=== PATIENT | female | born 1955 | race African-American/Black ===

== ENCOUNTER → 2017-11-23 | Outpatient (CLI) | payer OTHER ==
[~2017-11-23] MED LIST: GADOBUTROL 10 MMOL/10 ML VIAL IV ONE; SODIUM CHLORIDE 0.9% 100 ML 100 ML ONE
[2017-11-23 08:20] LABS: BLOOD UREA NITROGEN 17 mg/dL (7-26); BUN/CREATININE RATIO 22 (6-25); CREATININE, SERUM 0.78 mg/dL (0.57-1.11); EST GLOMERULAR FILTRATION RATE > 60 ML/MIN (60-)
--- NOTE | 2017-11-23 10:58 | Diagnostic Imaging Report ---
History: Carotid stenosis. Increased blood pressure Comparison studies: None Technique: 3-D dynamic postcontrast Contrast: 10 cc ofMagnevist. Findings: Percentage of stenosis will be based on the NASCET criteria. Aortic arch: No flow abnormalities. Common carotid arteries: No flow abnormalities. Right carotid bulb: Less than 20% stenosis. Left carotid bulb: No stenosis. Internal carotid arteries: No flow abnormalities. Vertebral arteries: Antegrade flow. Right dominant. No flow abnormalities of the right vertebral artery. More than 70% stenosis at the left vertebral artery takeoff. 30-40% stenosis at the mid intracranial left vertebral artery with irregular flow (V4 segment), most likely related to atherosclerotic changes. Focal mucosal thickening at the right maxillary sinus IMPRESSION: High-grade stenosis of the left vertebral artery takeoff. Moderate stenosis of the left vertebral artery intracranial segment. No hemodynamically significant stenosis of the remaining neck arteries. Signed by: DR Vickey Arnold M.D. on 11/23/2017 10:54 AM
== END ==
LOC: MRI 07:21
PROVIDERS: ATTEND Internal Medicine
DX: I65.29 Occlusion and stenosis of unspecified carotid artery (principal)
CPT/HCPCS: 36415; 70549; 82565; 84520; A9585

== ENCOUNTER → 2017-12-16 | Outpatient (CLI) | payer OTHER ==
[~2017-12-16] MED LIST changes: +AMLODIPINE-BEN1 EAC5 PO; +ASPIRIN EC81 MG PO; +ATORVASTATIN CA10 MG PO; +GABAPENTIN100 MG PO; -GADOBUTROL 10 MMOL/10 ML VIAL IV ONE; +GLIMEPIRIDE2 MG PO; +HYDRALAZINE HCL25 MG PO; +LEVOTHYROXINE50 MCG PO; +METFORMIN HCL1000 MG PO; +METOPROLOL TART50 MG PO; +NITROGLYCERIN0.4 MG SL; -SODIUM CHLORIDE 0.9% 100 ML 100 ML ONE
== END ==
LOC: MAMMO 08:30
PROVIDERS: ATTEND Internal Medicine
DX: Z12.31 Encounter for screening mammogram for malignant neoplasm of breast (principal)
CPT/HCPCS: G0202

== ENCOUNTER → 2017-12-21 | Day surgery (SDC) | payer OTHER ==
[2017-12-20 10:40] LABS: BASOPHILS % 0.7 % (0.0-1.0); EOSINOPHILS # (AUTO) 0.2 (0.0-0.4); EOSINOPHILS % 3.6 % (0.0-6.0); HEMOGLOBIN 13.4 g/dL (12.0-16.0); LYMPHOCYTES # (AUTO) 2.3 (1.0-3.2); LYMPHOCYTES % 38.2 % (18.0-39.1); MEAN CORPUSCULAR HEMOGLOBIN 25.3 pg (28-32); MEAN CORPUSCULAR HGB CONC 31.2 g/dL (31-35); MEAN CORPUSCULAR VOLUME 81.1 fL (81-99); MONOCYTES # (AUTO) 0.5 (0.2-0.8); MONOCYTES % 9.1 % (4.4-11.3); NEUTROPHILS # (AUTO) 2.9 (2.1-6.9); NEUTROPHILS % 48.2 % (38.7-80.0); PLATELET COUNT 249 x10e3/uL (140-360); RED CELL DISTRIBUTION WIDTH 13.6 % (11.7-14.4)
[2017-12-20 10:46] LABS: INR 1.01; PROTHROMBIN TIME 13.8 seconds (11.9-14.5)
[2017-12-20 10:54] LABS: ALANINE AMINOTRANSFERASE 15 IU/L (0-55); ALBUMIN 3.6 g/dL (3.5-5.0); ALBUMIN/GLOBULIN RATIO 0.8 (0.8-2.0); ALKALINE PHOSPHATASE 120 IU/L (40-150); ANION GAP 10.8 mmol/L (8-16); BLOOD UREA NITROGEN 15 mg/dL (7-26); BUN/CREATININE RATIO 19 (6-25); CALCIUM 9.1 mg/dL (8.4-10.2); CARBON DIOXIDE 29 mmol/L (22-29); CHLORIDE 104 mmol/L (98-107); CHOL/HDL RATIO 3.3 (3.0-3.6); CHOLESTEROL 182 MD/DL (0-199); EST GLOMERULAR FILTRATION RATE > 60 ML/MIN (60-); GLUCOSE 123 mg/dL (74-118); HDL CHOLESTEROL 56 MG/DL (40-60); LDL CHOLESTEROL 108 MG/DL (60-130); POTASSIUM 3.8 mmol/L (3.5-5.1); SODIUM 140 mmol/L (136-145); TRIGLYCERIDES 88 MG/DL (0-149)
[~2017-12-21] VITALS: Ht 167.6 cm; Wt 97.1 kg
[~2017-12-21] MED LIST changes: +ADENOSINE 3MG/1ML 30ML VIAL ONE; +ASPIRIN 325 MG TAB ONE; +DIPHENHYDRAMINE HCL INJ 1 ML ONE; +FENTANYL CITRATE/PF 100MCG/2 ML INJ ONE; +HEPARIN SOD (PORCINE) 1000 UNIT/ML 30ML ONE; +HEPARIN SOD/SOD CHLORIDE 2,000 ML ONE; +HYDRALAZINE HCL 20 MG/ML VIAL ONE; +IOPAMIDOL 300MG/ML 100 ML INFUS..BTL IV ONE; +IOPAMIDOL 370 MG/ML 200 ML INFUS..BTL INJ ONE; +LIDOCAINE HCL 2% LOCAL 20 ML VIAL ONE; +METHYLPREDNISOLONE SOD SUCC 125 MG/2ML VIAL ONE; +MIDAZOLAM HCL 2 MG/2 ML VIAL ONE; +NITROGLYCERIN/D5W 200 MCG/ML 250 ML ONE; +SODIUM CHLORIDE 0.9% 100 ML 100 ML ONE; +SODIUM CHLORIDE 0.9% 1000ML 1,000 ML ONE
[2017-12-21 10:10] VITALS: BP 175/80
--- NOTE | 2017-12-21 17:40 | Operative Report ---
DATE OF PROCEDURE: December 21, 2017 PROCEDURE INDICATIONS: Chest pain concerning for unstable angina and claudication type symptoms with suspected outflow disease. PROCEDURES PERFORMED 1. Left heart catheterization. 2. Selective coronary angiography x2. 3. Abdominal aortogram. 4. Selective lower extremity angiography, bilateral. 5. Third order catheter placement from right common femoral artery to left common femoral artery. 6. Additional 3rd order catheter placement from right common femoral artery to left popliteal artery. 7. Left anterior descending iFR and left anterior descending FFR at peak hyperemia. 8. Right common femoral artery 6-Macedonian Angio-Seal closure. PROCEDURE COMPLICATIONS: None. ESTIMATED BLOOD LOSS: Less than 15 mL. PROCEDURE SUMMARY: After consent was obtained, the patient was prepped and draped in a sterile fashion, and the right femoral site was locally infiltrated with 2% Lidocaine. Access was obtained using micropuncture kit and a short 6-Macedonian sheath was placed. All catheters were advanced over a leading J wire. The 6-Macedonian catheters were used for the coronary angiography, JL4 and JR4 for selective engagement of left main and right coronary artery respectively. The JR4 was also used to cross the aortic valve for hemodynamic measurements. Omniflush was used for abdominal aortogram and selective angiography to each of bilateral lower extremities where we performed good catheter position to the (1) left popliteal (2) left common femoral artery (3) right common femoral artery. FINDINGS NOTED: 1. Left main large in caliber with luminal irregularities given large caliber LAD and circumflex. 2. The LAD has an area of 50% hazy area of proximal stenosis, area of 30% mid LAD stenosis and an area of 30% distal LAD stenosis. It gives a couple of diagonals of small to medium in caliber and small caliber septal perforators. FFR with wire position distal to the distal most stenosis of the LAD was by iFR 0.87, by FFR 0.83 and peak hyperemia with intravenous Adenosine and nitroglycerin intracoronary with guide catheter retrieved into the aorta with distal wire positions appropriately. 3. Circumflex has 30% limb stenosis and it gives to obtuse marginal. 4. Right coronary artery has 40% mid stenosis and it gives a terminal RPA and RPLV. LV pressure was 242/5 with end diastolic pressure of 26. 5. Aortic pressure was 239/98. 6. LV gram reveals left ventricular systolic function to be normal with ejection fraction of 60% to 65% with a caveat the LV gram was not fully opacified, so all regional areas were not clearly visualized. 7. Abdominal aortogram revealed patent renal arteries with luminal irregularities on the infrarenal aorta and iliac vessels. Common femoral and profunda femoris vessels, less than 30% stenosis throughout each of bilateral femoral arteries. The popliteal artery has less than 30% stenosis. There is 3-vessel runoff to bilateral lower extremities at least to half down the legs. The left CP trunk seems to have focal area distal 50% stenosis prior to its bifurcation. The distal portion of the frcez-sxa-bikf vessels are not clearly well visualized. This seems to be in part due to slow flow at the foot level concerning for outflow disease bilaterally/small vessel disease. It is, therefore, recommended to proceed with medical therapy. CONCLUSION: 1. Predominantly outflow/small vessel disease effecting peripheral artery disease. 2. Moderate stenosis of the proximal left anterior descending with FFR 0.83 and mild disease of circumflex and RCA. RECOMMENDATIONS: Optimize medical therapy, up-titrate statins, up-titrate antihypertensives. Life style modification. Four-hour bedrest. IV fluids. Okay to discharge home later today. Job#: [id number] GH MTDD
== END | disposition home or self-care (01) ==
LOC: CATH LAB 09:15
PROVIDERS: ATTEND Internal Medicine Cardiovascular Disease
DX: I25.119 Atherosclerotic heart disease of native coronary artery with unspecified angina pectoris (principal); I73.9 Peripheral vascular disease, unspecified; I10 Essential (primary) hypertension; E78.5 Hyperlipidemia, unspecified; E11.69 Type 2 diabetes mellitus with other specified complication; E66.9 Obesity, unspecified; Z01.810 Encounter for preprocedural cardiovascular examination; Z79.82 Long term (current) use of aspirin; Z68.34 Body mass index [BMI] 34.0-34.9, adult
CPT/HCPCS: 36247; 36248; 36415; 77002; 80053; 80061; 85025; 85610; 93005; 93458; C1769 ×2; J0153; J0360; J1200; J1644; J2001; J2250; J2930; J7030; Q9967 ×2; 36140; 75630; 75710; 93452; 93571

== ENCOUNTER → 2018-01-13 | Outpatient (CLI) | payer OTHER ==
[~2018-01-13] MED LIST changes: -ADENOSINE 3MG/1ML 30ML VIAL ONE; -ASPIRIN 325 MG TAB ONE; -DIPHENHYDRAMINE HCL INJ 1 ML ONE; -FENTANYL CITRATE/PF 100MCG/2 ML INJ ONE; -HEPARIN SOD (PORCINE) 1000 UNIT/ML 30ML ONE; -HEPARIN SOD/SOD CHLORIDE 2,000 ML ONE; -HYDRALAZINE HCL 20 MG/ML VIAL ONE; -IOPAMIDOL 300MG/ML 100 ML INFUS..BTL IV ONE; -IOPAMIDOL 370 MG/ML 200 ML INFUS..BTL INJ ONE; -LIDOCAINE HCL 2% LOCAL 20 ML VIAL ONE; -METHYLPREDNISOLONE SOD SUCC 125 MG/2ML VIAL ONE; -MIDAZOLAM HCL 2 MG/2 ML VIAL ONE; -NITROGLYCERIN/D5W 200 MCG/ML 250 ML ONE; -SODIUM CHLORIDE 0.9% 100 ML 100 ML ONE; -SODIUM CHLORIDE 0.9% 1000ML 1,000 ML ONE
--- NOTE | 2018-01-13 11:32 | Diagnostic Imaging Report ---
PROCEDURE:HIP RIGHT 2-3 VW (+/- PELVIS) TECHNIQUE:AP and frog-leg lateral right hip; AP pelvis INDICATION:Right hip and knee pain. COMPARISON:None. FINDINGS: The pelvic ring and image regional skeleton are intact and in anatomic alignment. Joint space narrowing and acetabular roof with associated subchondral sclerosis and marginal osteophytosis. Femoral head intact. CONCLUSION: Right hip osteoarthritis. Dictated by: Carlos Beach M.D. on 01/13/2018 at 11:31 Electronically approved by: Carlos Beach M.D. on 01/13/2018 at 11:31
--- NOTE | 2018-01-13 11:33 | Diagnostic Imaging Report ---
PROCEDURE:KNEE RIGHT THREE VIEWS TECHNIQUE:AP, lateral and oblique views right knee INDICATION:Right knee pain COMPARISON:None. FINDINGS: The right knee is intact. Mild medial compartment joint space narrowing with tibial plateau and femoral condyle are marginal osteophytosis and trace subchondral sclerosis. Patellar enthesophytes and small osteophytes. Moderate joint effusion. CONCLUSION: Mild 2 compartment osteoarthritis with moderate joint effusion. Dictated by: Carlos Beach M.D. on 01/13/2018 at 11:32 Electronically approved by: Carlos Beach M.D. on 01/13/2018 at 11:32
== END ==
LOC: RAD 10:16
PROVIDERS: ATTEND Internal Medicine
DX: M13.851 Other specified arthritis, right hip (principal); M13.861 Other specified arthritis, right knee

== ENCOUNTER → 2018-12-06 | Day surgery (SDC) | payer OTHER ==
[~2018-12-06] MED LIST changes: +LIDOCAINE HCL 2% LOCAL INJ 5 ML SDV VIAL INJ ONE; +MIDAZOLAM HCL 2 MG/2 ML VIAL ONE; +PROPOFOL IV EMULSION 10 MG/ML 20 ML VIAL ONE
--- OUTSIDE RECORDS SUMMARY | 2018-12-06 08:47 | XMS REPORT ---
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 Allergies, Adverse Reactions, Alerts This patient has no known allergies or adverse reactions. Medications This patient has no known medications. Results Test Description Test Time Test Comments Text Results Atomic Results Result Comments HIP RIGHT 2-3 VW (+/- PELVIS) [place] [address] Patient Name: TED LI MR #: [id number] : 1955 Age/Sex: 62/F Req #: [id number] [facility] Physician: Ordered by: TED BESS MD Report #: [id number] Location: [facility] Room/Bed: Procedure: [id number] DX/HIP RIGHT 2-3 VW (+/- PELVIS) Exam Date: Exam Time: REPORT STATUS: Signed PROCEDURE: HIP RIGHT 2-3 VW (+/- PELVIS) TECHNIQUE: AP and frog- leg lateral right hip; AP pelvis INDICATION: Right hip and knee pain. COMPARISON: None. FINDINGS: The pelvic ring and image regional skeleton are intact and in anatomic alignment. Joint space narrowing and acetabular roof with associated subchondral sclerosis and marginal osteophytosis. Femoral head intact. CONCLUSION: Right hip osteoarthritis. Dictated by: Naheed Beach M.D. on 01/13/2018 at 11:31 Electronically approved by: Naheed Beach M.D. on 01/13/2018 at 11:31 Dictated By: NAHEED BEACH MD 1131 Transcribed By: JONNIE on 01/13/18 113 COPY TO: TED BESS MD KNEE RIGHT THREE VIEWS [place] [address] Patient Name: TED LI MR #: [id number] : 1955 Age/Sex: 62/F Req #: [id number] [facility] Physician: Ordered by: TED BESS MD Report #: [id number] Location: [facility] Room/Bed: Procedure: [id number] DX/KNEE RIGHT THREE VIEWS Exam Date: 01/13/18 Exam Time: 1050 REPORT STATUS: Signed PROCEDURE: KNEE RIGHT THREE VIEWS TECHNIQUE: AP, lateral and oblique views right knee INDICATION: Right knee pain COMPARISON: None. FINDINGS: The right knee is intact. Mild medial compartment joint space narrowing with tibial plateau and femoral condyle are marginal osteophytosis and trace subchondral sclerosis. Patellar enthesophytes and small osteophytes. Moderate joint effusion. CONCLUSION: Mild 2 compartment osteoarthritis with moderate joint effusion. Dictated by: Naheed Beach M.D. on 01/13/2018 at 11:32 Electronically approved by: Naheed Beach M.D. on 01/13/2018 at 11:32 Dictated By: NAHEED BEACH MD 1132 Transcribed By: JONNIE on 01/13/18 113 COPY TO: TED BESS MD MAMMOGRAPHY DIGITAL SCR BILAT [facility] [address] [place] [address] Patient Name: TED LI MR #: [id number] : 1955 Age/Sex: 62/F Req #: [id number] Adm Physician: Ordered by: TED BESS MD Report #: [id number] Location: MAMMO Room/Bed: Procedure: [id number] MG/MAMMOGRAPHY DIGITAL SCR BILAT Exam Date: 12/16/17 Exam Time: 0834 REPORT STATUS: Signed #[id number] - MGSCRBIL #BILATERAL DIGITAL SCREENING MAMMOGRAM WITH CAD: 12/16/2017 CLINICAL: Routine screening. Comparison is made to exam dated: 12/17/2016 mammogram - [facility]. Current study contains 6 films. The tissue of both breasts is predominantly fatty. Current study was also evaluated with a Computer Aided Detection (CAD) system. There are benign calcifications in both breasts. There also is a benign intramammary node in the right breast- this was only partially visualized on the prior study. Additionally there are benign vascular calcifications in the left breast. No significant masses, calcifications, or other findings are seen in either breast. There has been no significant interval change. IMPRESSION: BENIGN There is no mammogra phic evidence of malignancy. A 1 year screening mammogram is recommended. The patient will be notified by letter of the results. Maryse Figueroa Jr., D.O. cw/:12/26/2017 10:09:27 Dog Beautician: Laurel NDIAYE)(Juan Jose), [facility] letter sent: Compared to Prior B9 Mammogram BI-RADS: 2 Benign Dictated By: MARYSE Lorenzoally Signed By: MARYSE FIGUEROA DO on 12/26/17 100 Transcribed By: HALINA on 12/26/17 1009 COPY TO: TED BESS MD MRA NECK WOW [place] [address] Patient Name: TED LI MR #: [id number] : 1955 Age/Sex: 62/F Req #: [id number] Adm Physician: Ordered by: TED BESS MD Report #: [id number] Location: MRI Room/Bed: Procedure: [id number] MRI/MRA NECK WOW Exam Date: 11/23/17 Exam Time: 0845 REPORT STATUS: Signed History: Carotid stenosis. Increased blood pressure Comparison studies: None Technique: 3-D dynamic postcontrast Contrast: 10 cc ofMagnevist. Findings: Percentage of stenosis will be based on the NASCET criteria. Aortic arch: No flow abnormalities. Common carotid arteries: No flow abnormalities. Right carotid bulb: Less than 20% stenosis. Left carotid bulb: No stenosis. Internal carotid arteries: No flow abnormalities. Vertebral arteries: Antegrade flow. Right dominant. No flow abnormalities of the right vertebral artery. More than 70% stenosis at the left vertebral artery takeoff. 30-40% stenosis at the mid intracranial left vertebral artery with irregular flow (V4 segment), most likely related to atherosclerotic changes. Focal mucosal thickening at the right maxillary sinus IMPRESSION: High-grade stenosis of the left vertebral artery takeoff. Moderate stenosis of the left vertebral artery intracranial segment. No hemodynamically significant stenosis of the remaining neck arteries. Signed by: DR Vickey Arnold M.D. on 11/23/2017 10:54 AM Dictated By: VICKEY ALVAREZ MD 105 Transcribed By: LASHAE on 11/23/171053 COPY TO: TED BESS MD
[2018-12-06 11:45] VITALS: BP 171/75
== END | disposition home or self-care (01) ==
LOC: OR 08:45
PROVIDERS: ATTEND Internal Medicine Gastroenterology
DX: Z12.11 Encounter for screening for malignant neoplasm of colon (principal); D17.5 Benign lipomatous neoplasm of intra-abdominal organs; K63.5 Polyp of colon; K62.1 Rectal polyp; K64.8 Other hemorrhoids; Z71.3 Dietary counseling and surveillance; E66.9 Obesity, unspecified; I10 Essential (primary) hypertension; E11.9 Type 2 diabetes mellitus without complications; E03.9 Hypothyroidism, unspecified; Z01.810 Encounter for preprocedural cardiovascular examination; Z79.84 Long term (current) use of oral hypoglycemic drugs; Z68.33 Body mass index [BMI] 33.0-33.9, adult; Z87.891 Personal history of nicotine dependence; Z86.73 Personal history of transient ischemic attack (TIA), and cerebral infarction without residual deficits
CPT/HCPCS: 36415; 45380; 82948; 93005; J2001; J2250; J2704

== ENCOUNTER → 2018-12-26 | Outpatient (CLI) | payer OTHER ==
[~2018-12-26] MED LIST changes: -LIDOCAINE HCL 2% LOCAL INJ 5 ML SDV VIAL INJ ONE; -MIDAZOLAM HCL 2 MG/2 ML VIAL ONE; -PROPOFOL IV EMULSION 10 MG/ML 20 ML VIAL ONE
== END ==
LOC: MAMMO 08:45
PROVIDERS: ATTEND Internal Medicine
DX: Z12.31 Encounter for screening mammogram for malignant neoplasm of breast (principal)
CPT/HCPCS: 77067

== ENCOUNTER 2021-01-09 16:30 | Emergency (ER) | payer OTHER ==
[~2021-01-09] VITALS: Ht 167.6 cm; Wt 97.5 kg
[2021-01-09 17:09] LABS: BASOPHILS % 0.6 % (0.0-1.0); EOSINOPHILS # (AUTO) 0.2 (0.0-0.4); EOSINOPHILS % 3.7 % (0.0-6.0); HEMATOCRIT 39.4 % (34.2-44.1); HEMOGLOBIN 12.5 g/dL (12.0-16.0); LYMPHOCYTES # (AUTO) 2.5 (1.0-3.2); LYMPHOCYTES % 38.4 % (18.0-39.1); MEAN CORPUSCULAR HEMOGLOBIN 25.1 pg (28-32); MEAN CORPUSCULAR HGB CONC 31.7 g/dL (31-35); MONOCYTES # (AUTO) 0.6 (0.2-0.8); MONOCYTES % 9.4 % (4.4-11.3); NEUTROPHILS # (AUTO) 3.1 (2.1-6.9); NEUTROPHILS % 47.7 % (38.7-80.0); PLATELET COUNT 269 x10e3/uL (140-360); RED BLOOD COUNT 4.99 x10e6/uL (3.6-5.1); RED CELL DISTRIBUTION WIDTH 13.7 % (11.7-14.4)
[2021-01-09] MEDS: ASPIRIN 81 MG CHEW TAB PO ONE (17:17)
[2021-01-09] MEDS: CLONIDINE HCL 0.2 MG TAB PO NR (17:17)
[2021-01-09 17:29] LABS: ALBUMIN 3.6 g/dL (3.5-5.0); ALBUMIN/GLOBULIN RATIO 0.9 (0.8-2.0); ANION GAP 14.6 mmol/L (8-16); CREATININE, SERUM 1.13 mg/dL (0.57-1.11); POTASSIUM 3.6 mmol/L (3.5-5.1)
[2021-01-09 18:19] VITALS: BP 154/96
== END 2021-01-09 18:22 | disposition home or self-care (01) ==
LOC: ER 16:40
DX: I10 Essential (primary) hypertension (principal); E11.9 Type 2 diabetes mellitus without complications; Z88.0 Allergy status to penicillin; Z79.84 Long term (current) use of oral hypoglycemic drugs
CPT/HCPCS: 36415; 71045; 80053; 82550; 82553; 84484; 85025; 99284

== ENCOUNTER → 2021-06-10 | Outpatient (CLI) | payer MEDICARE | LOC: MAMMO 12:09 | PROVIDERS: ATTEND Internal Medicine | DX: Z12.31 Encounter for screening mammogram for malignant neoplasm of breast (principal) | CPT/HCPCS: 77067 ==

== ENCOUNTER → 2021-08-17 | Outpatient (CLI) | payer MEDICARE | LOC: US 07:38 | PROVIDERS: ATTEND Internal Medicine Cardiovascular Disease | DX: R09.89 Other specified symptoms and signs involving the circulatory and respiratory systems (principal); I10 Essential (primary) hypertension | CPT/HCPCS: 93976 ==

== ENCOUNTER → 2021-10-06 | Outpatient (CLI) | payer MEDICARE | LOC: RAD 10:46 | PROVIDERS: ATTEND Internal Medicine | DX: E78.5 Hyperlipidemia, unspecified (principal); I10 Essential (primary) hypertension; R53.1 Weakness ==

== ENCOUNTER → 2022-06-24 | Outpatient (CLI) | payer MEDICARE | LOC: MAMMO 11:27 | PROVIDERS: ATTEND Internal Medicine | DX: Z12.31 Encounter for screening mammogram for malignant neoplasm of breast (principal) | CPT/HCPCS: 77067 ==

== ENCOUNTER 2022-07-10 02:18 | Observation (INO) | payer MEDICARE ==
[~2022-07-10] VITALS: Ht 167.6 cm; Wt 95.7 kg
[2022-07-10] MEDS ORDERED: ONDANSETRON HCL INJ 2MG/ML 2ML 2 MG/ML VIAL IV STA (02:35)
[2022-07-10] MEDS ORDERED: ASPIRIN 81 MG CHEW TAB PO ONE ×2 (02:45→04:00)
[2022-07-10] MEDS ORDERED: SODIUM CHLORIDE FLUSH 10 ML SYR IV PRN (02:45)
[2022-07-10] MEDS ORDERED: DONNATAL/LIDOCAINE/MAALOX 30 ML SUSP PO ONE (02:45)
[2022-07-10 03:07] LABS: BASOPHILS # (AUTO) 0.1 (0.0-0.1); BASOPHILS % 0.6 % (0.0-1.0); EOSINOPHILS # (AUTO) 0.3 (0.0-0.4); EOSINOPHILS % 3.9 % (0.0-6.0); HEMATOCRIT 41.1 % (34.2-44.1); HEMOGLOBIN 12.8 g/dL (12.0-16.0); LYMPHOCYTES # (AUTO) 2.7 (1.0-3.2); LYMPHOCYTES % 33.6 % (18.0-39.1); MEAN CORPUSCULAR HEMOGLOBIN 25.2 pg (28-32); MEAN CORPUSCULAR HGB CONC 31.1 g/dL (31-35); MEAN CORPUSCULAR VOLUME 81.1 fL (81-99); MONOCYTES # (AUTO) 0.7 (0.2-0.8); NEUTROPHILS # (AUTO) 4.2 (2.1-6.9); NEUTROPHILS % 52.7 % (38.7-80.0); PLATELET COUNT 268 x10e3/uL (140-360); RED BLOOD COUNT 5.07 x10e6/uL (3.6-5.1); RED CELL DISTRIBUTION WIDTH 13.5 % (11.7-14.4)
[2022-07-10] MEDS ORDERED: LIDOCAINE VISC 2% SOLN 15 ML UDC ONE (03:11)
[2022-07-10] MEDS ORDERED: BELLADONNA ALK/PHENOBARBITAL 5 ML UDC ONE (03:11)
[2022-07-10] MEDS ORDERED: MAGNESIUM/ALUMINUM/SIMETHICONE 30 ML UDC ONE (03:12)
[2022-07-10 03:29] LABS: ALANINE AMINOTRANSFERASE 14 IU/L (0-55); ALBUMIN 3.5 g/dL (3.5-5.0); ALBUMIN/GLOBULIN RATIO 0.8 (0.8-2.0); ALKALINE PHOSPHATASE 129 IU/L (40-150); ANION GAP 14.9 mmol/L (8-16); BLOOD UREA NITROGEN 20 mg/dL (7-26); BUN/CREATININE RATIO 20 (6-25); CALCIUM 9.6 mg/dL (8.4-10.2); CARBON DIOXIDE 24 mmol/L (22-29); CHLORIDE 105 mmol/L (98-107); CREATININE, SERUM 0.99 mg/dL (0.57-1.11); GLUCOSE 188 mg/dL (74-118); POTASSIUM 3.9 mmol/L (3.5-5.1); SODIUM 140 mmol/L (136-145)
[2022-07-10] MEDS ORDERED: SODIUM CHLORIDE FLUSH 10 ML SYR INJ PRN (04:00)
[2022-07-10] MEDS ORDERED: ONDANSETRON HCL INJ 2MG/ML 2ML 2 MG/ML VIAL IV PRN (04:00)
[2022-07-10 04:28] LABS: CREATINE KINASE MB 1.2 ng/mL (0-5.0)
[2022-07-10] MEDS ORDERED: ALBUTEROL/IPRATROPIUM 3 ML NEB ONE (08:07)
[2022-07-10] MEDS ORDERED: MELATONIN 3 MG TAB PO PRN (08:45)
[2022-07-10] MEDS ORDERED: DOCUSATE SODIUM 100 MG CAP PO PRN (08:45)
[2022-07-10] MEDS ORDERED: ATORVASTATIN 10 MG TAB PO SCH (09:00)
[2022-07-10] MEDS ORDERED: METOPROLOL TARTRATE 50 MG TAB PO SCH (09:00)
[2022-07-10 09:03] LABS: CHOL/HDL RATIO 3.1 (3.0-3.6)
[2022-07-10] MEDS: GLIMEPIRIDE 2 MG TAB PO SCH ×2 (10:51→17:23)
[2022-07-10] MEDS: HYDRALAZINE HCL 25 MG TAB PO SCH ×2 (10:51→17:27)
[2022-07-10] MEDS: ASPIRIN 81 MG CHEW TAB PO SCH (10:52)
[2022-07-10] MEDS: GABAPENTIN 100 MG CAP PO SCH ×2 (10:52→17:27)
[2022-07-10] MEDS: LEVOTHYROXINE SODIUM 25 MCG TABLET PO SCH (10:52)
[2022-07-10 11:33] LABS: CREATINE KINASE MB 1.1 ng/mL (0-5.0)
[2022-07-10 16:03] VITALS: BP 137/69
[2022-07-10 16:09] VITALS: BP 137/69
[2022-07-10 16:33] VITALS: BP 137/69
[2022-07-10] MEDS: FAMOTIDINE 20 MG TAB PO SCH (17:23)
[2022-07-10] MEDS: ENOXAPARIN SOD INJ 40 MG/0.4 ML SYR SC SCH (17:27)
[2022-07-10 20:00] VITALS: BP 162/72
[2022-07-10 20:24] LABS: CREATINE KINASE MB 0.9 ng/mL (0-5.0)
[2022-07-11] VITALS (8 sets, daily range): BP systolic 140–178; BP diastolic 52–96
[2022-07-11 05:41] LABS: BASOPHILS # (AUTO) 0.1 (0.0-0.1); BASOPHILS % 0.9 % (0.0-1.0); EOSINOPHILS # (AUTO) 0.3 (0.0-0.4); HEMATOCRIT 42.5 % (34.2-44.1); MEAN CORPUSCULAR HEMOGLOBIN 24.9 pg (28-32); MEAN CORPUSCULAR HGB CONC 30.6 g/dL (31-35); MEAN CORPUSCULAR VOLUME 81.3 fL (81-99); MONOCYTES # (AUTO) 0.6 (0.2-0.8); MONOCYTES % 8.9 % (4.4-11.3); NEUTROPHILS # (AUTO) 2.9 (2.1-6.9); NEUTROPHILS % 41.9 % (38.7-80.0); PLATELET COUNT 262 x10e3/uL (140-360); RED BLOOD COUNT 5.23 x10e6/uL (3.6-5.1); RED CELL DISTRIBUTION WIDTH 13.2 % (11.7-14.4)
[2022-07-11 05:58] LABS: ANION GAP 13.3 mmol/L (8-16); CALCIUM 8.8 mg/dL (8.4-10.2); CREATININE, SERUM 0.85 mg/dL (0.57-1.11); POTASSIUM 4.3 mmol/L (3.5-5.1)
[2022-07-11] MEDS: GLIMEPIRIDE 2 MG TAB PO SCH ×2 (08:50→17:00)
[2022-07-11] MEDS: FAMOTIDINE 20 MG TAB PO SCH ×2 (08:50→17:40)
[2022-07-11] MEDS: HYDRALAZINE HCL 25 MG TAB PO SCH ×2 (08:51→17:40)
[2022-07-11] MEDS: ASPIRIN 81 MG CHEW TAB PO SCH (08:51)
[2022-07-11] MEDS: LEVOTHYROXINE SODIUM 25 MCG TABLET PO SCH (08:52)
[2022-07-11] MEDS: ATORVASTATIN 40 MG TAB PO SCH (08:52)
[2022-07-11] MEDS: GABAPENTIN 100 MG CAP PO SCH ×2 (08:53→17:40)
[2022-07-11] MEDS ORDERED: FARXIGA10 MG PO (09:02)
[2022-07-11] MEDS ORDERED: NIFEDIPINE ER30 M1 PO (09:02)
[2022-07-11] MEDS ORDERED: VITAMIN D325 MCG PO (09:02)
[2022-07-11] MEDS ORDERED: BIOTIN800 MCG PO (09:02)
[2022-07-11] MEDS ORDERED: ATORVASTATIN CA20 MG PO (09:02)
[2022-07-11] MEDS ORDERED: EXFORGE 10-3201 EACH PO (09:02)
[2022-07-11] MEDS ORDERED: JANUMET 50-1,01 EACH PO (09:02)
[2022-07-11] MEDS: METOPROLOL SUCCINATE 50 MG TAB XL PO SCH (09:08)
[2022-07-11] MEDS: ENOXAPARIN SOD INJ 40 MG/0.4 ML SYR SC SCH (17:42)
[2022-07-12] VITALS: BP 172/68
[2022-07-12] MEDS: FAMOTIDINE 20 MG TAB PO SCH ×2 (07:30→15:17)
[2022-07-12 07:58] VITALS: BP 178/72
[2022-07-12] MEDS: METOPROLOL SUCCINATE 50 MG TAB XL PO SCH ×2 (08:08→15:16)
[2022-07-12 08:43] VITALS: BP 178/75
[2022-07-12] MEDS: LEVOTHYROXINE SODIUM 25 MCG TABLET PO SCH (09:00)
[2022-07-12] MEDS: GLIMEPIRIDE 2 MG TAB PO SCH ×2 (09:00→15:17)
[2022-07-12] MEDS: GABAPENTIN 100 MG CAP PO SCH ×2 (09:00→15:17)
[2022-07-12 11:29] VITALS: BP 179/72
[2022-07-12] MEDS ORDERED: REGADENOSON 0.4 MG/5 ML SYR IV ONE (12:15)
[2022-07-12] MEDS: HYDRALAZINE HCL 25 MG TAB PO SCH ×2 (15:14→17:14)
[2022-07-12] MEDS: ASPIRIN 81 MG CHEW TAB PO SCH (15:16)
[2022-07-12] MEDS: ATORVASTATIN 40 MG TAB PO SCH (15:16)
[2022-07-12] MEDS ORDERED: TOPROL XL50 MG PO (17:13)
[2022-07-12] MEDS: ENOXAPARIN SOD INJ 40 MG/0.4 ML SYR SC SCH (17:14)
[2022-07-12] MEDS ORDERED: ONDANSETRON HCL 4 MG ORAL DISINTEGRATING TAB PO PRN (17:30)
[2022-07-12 20:00] VITALS: BP 173/90
== END 2022-07-12 20:00 | disposition home or self-care (01) ==
LOC: ER 02:21 → ERHOLD 04:09 → MED/SURG3 14:04
PROVIDERS: ADMIT Internal Medicine; ATTEND Internal Medicine
DX: R07.89 Other chest pain (principal); E78.5 Hyperlipidemia, unspecified; I10 Essential (primary) hypertension; R91.1 Solitary pulmonary nodule; E11.69 Type 2 diabetes mellitus with other specified complication; Z88.0 Allergy status to penicillin; Z20.822 Contact with and (suspected) exposure to COVID-19
CPT/HCPCS: 0223U; 36415 ×3; 71045; 71250; 78452; 80048; 80053; 80061; 82550; 82553; 82948 ×3; 83036; 83880; 84439; 84443; 84484; 85025 ×2; 93005; 93017; 93306; 94760; 99284; A9502; G0378 ×3; J1650 ×3; J2405; J2785

== ENCOUNTER → 2023-01-10 | Outpatient (CLI) | payer MEDICARE ==
[~2023-01-10] MED LIST changes: +ATORVASTATIN CA20 MG PO; +BIOTIN800 MCG PO; +EXFORGE 10-3201 EACH PO; +FARXIGA10 MG PO; +JANUMET 50-1,01 EACH PO; +NIFEDIPINE ER30 M1 PO; +TOPROL XL50 MG PO; +VITAMIN D325 MCG PO
== END ==
LOC: CT 12:09
PROVIDERS: ATTEND Internal Medicine Critical Care Medicine
DX: G47.19 Other hypersomnia (principal); J45.909 Unspecified asthma, uncomplicated; K21.9 Gastro-esophageal reflux disease without esophagitis; G47.33 Obstructive sleep apnea (adult) (pediatric); R91.1 Solitary pulmonary nodule; E66.9 Obesity, unspecified
CPT/HCPCS: 71250

== ENCOUNTER 2024-03-24 04:47 | Emergency (ER) | payer MEDICARE ==
[~2024-03-24] VITALS: Ht 167.6 cm; Wt 95.7 kg
[2024-03-24 04:52] VITALS: O2SAT 100
[2024-03-24] MEDS ORDERED: DOXYCYCLINE HY100 MG PO (05:02)
== END 2024-03-24 05:20 | disposition home or self-care (01) ==
LOC: ER 04:55
DX: L72.8 Other follicular cysts of the skin and subcutaneous tissue (principal); I10 Essential (primary) hypertension; E11.9 Type 2 diabetes mellitus without complications
CPT/HCPCS: 99283

== ENCOUNTER → 2024-07-16 | Outpatient (REF) | payer MEDICARE ==
[~2024-07-16] MED LIST changes: +DOXYCYCLINE HY100 MG PO
== END ==
LOC: MAMMO 08:33
PROVIDERS: ATTEND Student in an Organized Health Care Education/Training Program
DX: Z12.31 Encounter for screening mammogram for malignant neoplasm of breast (principal)
CPT/HCPCS: 77067

== ENCOUNTER 2025-06-13 12:29 | Emergency (ER) | payer MEDICARE | END 2025-06-13 14:00 | disposition short-term general hospital (02) | LOC: ER 14:00 | DX: R19.7 Diarrhea, unspecified (principal) ==

== ENCOUNTER → 2025-08-07 | Outpatient (REF) | payer MEDICARE | LOC: MAMMO 08:25 | PROVIDERS: ATTEND Student in an Organized Health Care Education/Training Program | DX: Z12.31 Encounter for screening mammogram for malignant neoplasm of breast (principal) | CPT/HCPCS: 77067 ==